=== PATIENT | female | born 1985 ===

== ENCOUNTER 2018-04-19 01:33 | Emergency (ER) | payer SELFPAY ==
[2018-04-19 01:59] VITALS: RESP 16
[2018-04-19 02:36] LABS: BASO % 0.5 % (0.0-2.0); EOS # 0.2 K/uL (0.0-0.7); EOS % 1.9 % (0.0-4.0); HEMOGLOBIN 13.1 g/dL (12.0-16.0); LYMPH # 2.3 K/uL (1.0-4.3); LYMPH % 21.3 % (20.0-40.0); MEAN CELL VOLUME 86.3 fl (81.0-99.0); MEAN CORPUSCULAR HEMOGLOBIN 28.3 pg (27.0-31.0); MEAN CORPUSCULAR HGB CONC 32.8 g/dL (33.0-37.0); MEAN PLATELET VOLUME 8.9 fl (7.2-11.7); MONO # 0.6 K/uL (0.0-0.8); MONO % 5.2 % (0.0-10.0); NEUT # 7.6 K/uL (1.8-7.0); NEUT % 71.1 % (50.0-75.0); RBC 4.63 Mil/uL (3.80-5.20); RED CELL DISTRIBUTION WIDTH 12.5 % (11.5-14.5); WHITE BLOOD COUNT 10.7 K/uL (4.8-10.8)
[2018-04-19 02:40] LABS: ALB/GLOB RATIO 1.5 (1.0-2.1); ALBUMIN 4.8 g/dL (3.5-5.0); ALT/SGPT 26 U/L (9-52); AST/SGOT 22 U/L (14-36); BLOOD UREA NITROGEN 11 mg/dl (7-17); CALCIUM 9.6 mg/dL (8.4-10.2); GFR AFRICAN-AMERICAN > 60; GFR NON-AFRICAN AMERICAN > 60
--- NOTE | 2018-04-19 02:41 | ED PDOC ---
HPI: Psych/Substance Abuse Time Seen by Provider: 04/19/18 01:59 Chief Complaint (Nursing): Psychiatric Evaluation Chief Complaint (Provider): Psychiatric Evaluation ED Caveat: Intoxicated History/Exam Limitations: intoxication Current Symptoms Are (Timing): Still Present Modifying Factor(s): Alcohol Additional Complaint(s): 33 year old female brought to the ED for crisis evaluation. Unable to obtain history due to patient's intoxicated state. Past Medical History Reviewed: Historical Data, Nursing Documentation, Vital Signs Vital Signs: Last Vital Signs Temp 98.8 F 04/19/18 01:54 Pulse 110 H 04/19/18 01:54 Resp 16 04/19/18 01:54 BP 145/93 H 04/19/18 01:54 Pulse Ox 100 04/19/18 01:54 - Medical History PMH: No Chronic Diseases - Surgical History Surgical History: No Surg Hx - Family History Family History: States: Unknown Family Hx - Social History Current smoker - smoking cessation education provided: No Alcohol: > 2 Drinks/Day - Allergies Allergies/Adverse Reactions: Allergies Allergy/AdvReac Type Severity Reaction Status Date / Time No Known Allergies Allergy Verified 04/19/18 01:59 Review of Systems ROS Statement: Except As Marked, All Systems Reviewed And Found Negative Psych: Positive for: Other (EtOH use) Physical Exam - Physical Exam Appears: Positive for: Non-toxic, No Acute Distress Head Exam: Positive for: ATRAUMATIC, NORMOCEPHALIC Skin: Positive for: Normal Color, Warm, Dry Eye Exam: Positive for: Normal appearance, EOMI, PERRL ENT: Positive for: Normal ENT Inspection Neck: Positive for: Normal, Painless ROM Cardiovascular/Chest: Positive for: Regular Rate, Rhythm Respiratory: Positive for: CNT, Normal Breath Sounds Gastrointestinal/Abdominal: Positive for: Normal Exam, Soft Back: Positive for: Normal Inspection Extremity: Positive for: Normal ROM Neurologic/Psych: Positive for: Alert (slurred speech ). Negative for: Motor/ Sensory Deficits - Laboratory Results Result Diagrams: 04/19/18 02:28 04/19/18 02:28 - ECG O2 Sat by Pulse Oximetry: 100 (RA) Pulse Ox Interpretation: Normal Medical Decision Making Medical Decision Making: Time: 227 Impression: 33 year old female with suicidal declaration in setting of alcohol usage. Plan: -- Acetaminophen -- Alcohol Serum -- CMP -- Urine Drug Screen -- Salicylate -- Crisis eval -- ED Urine -- ED Urine dipstick -- CBC with differentials -- Glucose, PO -- 1:1 Observation -- Accucheck. Labs reviewed show no clinically significant abnormalities Patient now denies suicidal or homicidal ideation Patinet evaluated by crisis who find her stable for discharge Dx Alcohol induced mood disorder Scribe Attestation: Documented by Shari Reed acting as a scribe for Dr. Randall Pompa MD. Provider Scribe Attestation: All medical record entries made by the Scribe were at my direction and personally dictated by me. I have reviewed the chart and agree that the record accurately reflects my personal performance of the history, physical exam, medical decision making, and the department course for this patient. I have also personally directed, reviewed, and agree with the discharge instructions and disposition. Disposition - Clinical Impression Clinical Impression: Alcohol-induced mood disorder - Disposition Disposition: Routine/Home Disposition Time: 02:00 Condition: STABLE Instructions: Tips for How to Help Your Mood Forms: [facility] ([place])
[2018-04-19 02:50] LABS: OPIATES, UR NEGATIVE (NEGATIVE); SALICYLATE < 1.0 mg/dl
[2018-04-19 02:51] LABS: BARBITURATES, UR NEGATIVE (NEGATIVE); BENZODIAZEPINES, UR NEGATIVE (NEGATIVE); PHENCYCLIDINE, UR NEGATIVE (NEGATIVE)
[2018-04-19 05:03] VITALS: BP 118/70; PULSE 75; TEMP 98.6
[2018-04-19 20:17] VITALS: O2SAT 100
== END 2018-04-19 04:45 | disposition home or self-care (01) ==
LOC: H.ER 01:33
DX: F10.94 Alcohol use, unspecified with alcohol-induced mood disorder (principal)
CPT/HCPCS: 80053; 81025; 82948; 85025; 99284; G0480